=== PATIENT | male | born 1970 | race Caucasian/White ===

== ENCOUNTER 2016-12-04 11:59 | Emergency (ER) | payer SELFPAY ==
[~2016-12-04] VITALS: Ht 162.6 cm; Wt 69.9 kg
[~2016-12-04 11:59] MED LIST: CARAFATE100 MG/ML PO; CYTOMEL25 MCG PO; FLEXERIL10 MG PO; HYCODAN SYRUP480 ML PO; KEFLEX500 MG PO; LEVOTHYROXINE125 MCG PO; LEVOTHYROXINE175 MCG PO; LYRICA; LYRICA50 MG PO; METFORMIN HCL750 M1 PO; NAPROSYN500 MG PO; NO HOME MEDS; NORCO 5/3251 TABLET PO; PERCOCET 5/31 TABLET PO; PREDNISONE10 MG PO; PREDNISONE20 MG PO; RANITIDINE HCL150 MG PO; SYNTHROID; SYNTHROID125 MCG PO; SYNTHROID175 MCG PO; SYNTHROID200 MCG PO; SYNTHROID300 MCG PO; SYNTHROID50 MCG PO; Tylenol Regular Stre PO; ULTRAM50 MG PO; VALIUM5 MG PO; VENTOLIN HFA18 GM IH; VICODIN 5-3001 EACH PO; Vicodin,Norco 5/325 PO; ZITHROMAX Z-PA250 MG PO; ZOFRAN ODT4 MG PO; no home
[2016-12-04] MEDS ORDERED: EXCEDRIN EXTRA1 EACH PO (12:11)
[2016-12-04] MEDS ORDERED: TYLENOL REGULA325 MG PO (12:12)
[2016-12-04] MEDS ORDERED: FLEXERIL10 MG PO (13:08)
[2016-12-04] MEDS ORDERED: NAPROSYN500 MG PO (13:08)
[2016-12-04 13:23] VITALS: BP 116/76
== END 2016-12-04 13:24 | disposition home or self-care (01) ==
LOC: EXP 11:59 → EME 11:59 → EXP 13:24
DX: S39.012A Strain of muscle, fascia and tendon of lower back, initial encounter (principal); S20.212A Contusion of left front wall of thorax, initial encounter; X50.0XXA Overexertion from strenuous movement or load, initial encounter
CPT/HCPCS: 71100; 72110; 99281; 99283

== ENCOUNTER 2017-03-10 12:32 | Emergency (ER) | payer SELFPAY ==
[~2017-03-10] VITALS: Ht 162.6 cm; Wt 61.3 kg
[~2017-03-10 12:32] MED LIST changes: +EXCEDRIN EXTRA1 EACH PO; +TYLENOL REGULA325 MG PO
[2017-03-10 14:22] LABS: HEMATOCRIT 45.9 % (38.0-50.0); MCH 33.1 PG (29.0-34.0); MCHC 34.6 G/DL (30.0-36.0); MCV 95.6 FL (86-99); MEAN PLAT.VOLUME 10.5 uM^3 (9.0-12.4); PLATELET COUNT 281 K/uL (156-360); RBC DIS.WIDTH-CV 12.3 % (11.8-14.6); RBC DIS.WIDTH-SD 43.4 % (39-53); WHITE BLOOD COUNT 8.8 K/uL (4.1-10.2)
[2017-03-10 14:35] LABS: CHLORIDE 104 mEq/L (99-109); POTASSIUM 4.6 mEq/L (3.7-5.4); SODIUM 138 mEq/L (136-147)
[2017-03-10 14:37] LABS: GLUCOSE 91 mg/dL (70-99)
[2017-03-10 14:38] LABS: ANION GAP 13 MEQ/L (2-14)
[2017-03-10 14:40] LABS: GFR ESTIMATE (CALCULATED) > 59 mL/min/
[2017-03-10 14:41] LABS: UREA NITROGEN (BUN) 17 mg/dL (9-23)
[2017-03-10 14:43] LABS: URIC ACID 8.8 mg/dL (3.1-9.2)
[2017-03-10] MEDS ORDERED: ULTRAM50 MG PO (14:57)
[2017-03-10] MEDS ORDERED: INDOCIN50 MG PO (14:57)
[2017-03-10] MEDS ORDERED: COLCRYS0.6 MG PO (14:57)
[2017-03-10 15:05] VITALS: BP 147/91
== END 2017-03-10 15:06 | disposition home or self-care (01) ==
LOC: EME 12:32
PROVIDERS: Nurse Practitioner Family
DX: M10.9 Gout, unspecified (principal); E11.9 Type 2 diabetes mellitus without complications; Z88.0 Allergy status to penicillin
CPT/HCPCS: 80048; 84550; 85027; 99281; 99283

== ENCOUNTER 2017-04-10 16:01 | Emergency (ER) | payer SELFPAY ==
[~2017-04-10] VITALS: Ht 162.6 cm; Wt 71.5 kg
[~2017-04-10 16:01] MED LIST changes: +COLCRYS0.6 MG PO; +INDOCIN50 MG PO
[2017-04-10] MEDS ORDERED: NORCO 5/3251 TABLET PO (17:35)
[2017-04-10] MEDS ORDERED: KEFLEX500 MG PO (17:35)
[2017-04-10 17:52] VITALS: BP 123/84
== END 2017-04-10 17:53 | disposition home or self-care (01) ==
LOC: EME 16:01
PROC: 3E0234Z Introduction of Serum, Toxoid and Vaccine into Muscle, Percutaneous Approach (ICD-10-PCS; principal; 2017-04-10)
DX: S61.211A Laceration without foreign body of left index finger without damage to nail, initial encounter (principal); Z23 Encounter for immunization; W23.0XXA Caught, crushed, jammed, or pinched between moving objects, initial encounter; F17.200 Nicotine dependence, unspecified, uncomplicated; Z88.0 Allergy status to penicillin
CPT/HCPCS: 73140; 99281; 99283

== ENCOUNTER 2017-07-13 13:01 | Emergency (ER) | payer SELFPAY ==
[~2017-07-13] VITALS: Ht 162.6 cm; Wt 70.2 kg
[2017-07-13 13:35] LABS: HEMATOCRIT 42.2 % (38.0-50.0); MCH 33.1 PG (29.0-34.0); MCHC 34.1 G/DL (30.0-36.0); MEAN PLAT.VOLUME 10.4 uM^3 (9.0-12.4); PLATELET COUNT 208 K/uL (156-360); RBC DIS.WIDTH-CV 13.3 % (11.8-14.6); RBC DIS.WIDTH-SD 48.2 % (39-53); RED BLOOD COUNT 4.35 M/uL (4.00-5.50); WHITE BLOOD COUNT 7.2 K/uL (4.1-10.2)
[2017-07-13 13:54] LABS: ALKALINE PHOSPHATASE 65 IU/L (3-129); ANION GAP 7 MEQ/L (2-14); CHLORIDE 106 MEQ/L (99-109); GFR ESTIMATE (CALCULATED) > 59 mL/min/; GLUCOSE 130 mg/dL (70-99); LIPASE 39 U/L (1.0-51.0); POTASSIUM 3.5 MEQ/L (3.7-5.4); SAMPLE HEMOLYSIS CHECK 0; SAMPLE ICTERIC CHECK 0; SAMPLE LIPEMIA CHECK 0; SODIUM 140 MEQ/L (136-147); TOTAL BILIRUBIN 0.5 MG/DL (0.0-1.0); UREA NITROGEN (BUN) 12 mg/dL (9-23)
[2017-07-13 14:20] LABS: ADD MIUA? YES; BILIRUBIN NEGATIVE; BLOOD SMALL; COLOR YELLOW ((YELLOW)); GLUCOSE (STRIP) NEGATIVE; KETONES 5; LEUKOCYTES NEGATIVE; NITRITE NEGATIVE; PROTEIN (STRIP) NEGATIVE; SPECIFIC GRAVITY 1.021 (1.000-1.030)
[2017-07-13 14:27] LABS: BACTERIA NONE SEEN /HPF; EPITHELIAL CELLS RARE /HPF; MUCUS TRACE /LPF; RED BLOOD CELLS 0-5 /HPF (0-5); UCUL ADDED? NO; WHITE BLOOD CELLS 0-5 /HPF (0-5)
[2017-07-13] MEDS ORDERED: BENTYL20 MG PO (16:07)
[2017-07-13] MEDS ORDERED: SYNTHROID125 MCG PO (16:07)
[2017-07-13] MEDS ORDERED: ZOFRAN4 MG PO (16:07)
[2017-07-13] MEDS ORDERED: IMODIUM A-D2 M2 PO (16:07)
[2017-07-13 16:18] VITALS: BP 113/79
== END 2017-07-13 16:41 | disposition home or self-care (01) ==
LOC: EME 13:01
DX: R10.9 Unspecified abdominal pain (principal); R11.2 Nausea with vomiting, unspecified; R19.7 Diarrhea, unspecified; R05 Cough; E03.9 Hypothyroidism, unspecified; Z90.49 Acquired absence of other specified parts of digestive tract; F17.210 Nicotine dependence, cigarettes, uncomplicated
CPT/HCPCS: 80053; 81003; 83690; 85027; 99281; 99284; J1885; J2405; J7030

== ENCOUNTER → 2017-09-22 18:16 | Emergency (ER) | payer SELFPAY ==
[~2017-09-22] VITALS: Ht 162.6 cm; Wt 71.4 kg
[~2017-09-22 18:16] MED LIST changes: +BENTYL20 MG PO; +IMODIUM A-D2 M2 PO; +ZOFRAN4 MG PO
[2017-09-22 18:41] VITALS: BP 119/78
== END | disposition left against medical advice (07) ==
LOC: EME 18:16
DX: R20.0 Anesthesia of skin (principal); Z53.21 Procedure and treatment not carried out due to patient leaving prior to being seen by health care provider

== ENCOUNTER 2017-12-30 15:43 | Emergency (ER) | payer OTHER ==
[~2017-12-30] VITALS: Ht 162.6 cm; Wt 75.9 kg
[2017-12-30] MEDS ORDERED: KEFLEX500 MG PO (17:13)
[2017-12-30 17:22] VITALS: BP 135/95
== END 2017-12-30 17:22 | disposition home or self-care (01) ==
LOC: EME 15:43
DX: S41.131A Puncture wound without foreign body of right upper arm, initial encounter (principal); S50.01XA Contusion of right elbow, initial encounter; W20.8XXA Other cause of strike by thrown, projected or falling object, initial encounter; W45.0XXA Nail entering through skin, initial encounter; Y99.0 Civilian activity done for income or pay; Z88.0 Allergy status to penicillin
CPT/HCPCS: 73060; 73080; 99281; 99284

== ENCOUNTER 2018-02-13 19:51 | Emergency (ER) | payer OTHER ==
[~2018-02-13] VITALS: Ht 162.6 cm; Wt 73.3 kg
[2018-02-13] MEDS ORDERED: ZOFRAN4 MG PO (21:53)
[2018-02-13] MEDS ORDERED: MOTRIN800 MG PO (21:53)
[2018-02-13] MEDS ORDERED: FLEXERIL10 MG PO (21:53)
[2018-02-13 22:04] VITALS: BP 128/90
== END 2018-02-13 22:06 | disposition home or self-care (01) ==
LOC: EME 19:51
DX: S06.0X0A Concussion without loss of consciousness, initial encounter (principal); M62.838 Other muscle spasm; M54.9 Dorsalgia, unspecified; V54.5XXA Driver of pick-up truck or van injured in collision with heavy transport vehicle or bus in traffic accident, initial encounter; Y92.410 Unspecified street and highway as the place of occurrence of the external cause; J45.909 Unspecified asthma, uncomplicated; E11.9 Type 2 diabetes mellitus without complications; F17.200 Nicotine dependence, unspecified, uncomplicated; Z90.49 Acquired absence of other specified parts of digestive tract; Z88.0 Allergy status to penicillin
CPT/HCPCS: 70450; 72125; 72128; 99281; 99283